=== PATIENT | female | born 2000 | race Caucasian/White ===

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

== ENCOUNTER 2018-03-15 19:02 | Emergency (ER) | payer SELFPAY ==
[~2018-03-15] VITALS: Ht 170.2 cm; Wt 94.2 kg
[~2018-03-15 19:02] MED LIST changes: +FERR325T18 PO; -FERR325T20 PO
[2018-03-15 19:16] VITALS: BP 128/86
== END 2018-03-15 20:37 ==
LOC: ED 20:10
DX: J06.9 Acute upper respiratory infection, unspecified (principal); B34.9 Viral infection, unspecified; J45.909 Unspecified asthma, uncomplicated
CPT/HCPCS: 71046; 99284

== ENCOUNTER 2018-09-21 13:45 | Emergency (ER) | payer SELFPAY ==
[~2018-09-21] VITALS: Ht 172.7 cm; Wt 91.7 kg
[~2018-09-21 13:45] MED LIST changes: +TRAZ-136 PO; -TRAZ50TA18 PO
[2018-09-21 13:47] VITALS: BP 126/80
[2018-09-21] MEDS ORDERED: DIAZEPAM 5 MG TABLET PO ONE (14:00)
[2018-09-21] MEDS ORDERED: KETOROLAC 30 MG/1 ML IM ONE (14:00)
[2018-09-21] MEDS ORDERED: DIAZEPAM 5 MG TABLET ONE (14:37)
[2018-09-21] MEDS ORDERED: KETOROLAC 30 MG/1 ML ONE (14:37)
[2018-09-21] MEDS ORDERED: ACETAMINOPHEN 500 MG TABLET PO ONE (15:10)
[2018-09-21] MEDS ORDERED: ACETAMINOPHEN 500 MG TABLET ONE (15:26)
[2018-09-21 16:40] LABS: MICROSCOPIC INDICATED
[2018-09-21 16:46] LABS: CULTURE INDICATED? NO
== END 2018-09-21 17:27 | disposition home or self-care (01) ==
LOC: ED 17:20
DX: M54.5 Low back pain (principal); F32.9 Major depressive disorder, single episode, unspecified; J45.909 Unspecified asthma, uncomplicated; Z72.9 Problem related to lifestyle, unspecified; Z87.891 Personal history of nicotine dependence
CPT/HCPCS: 36415; 76801; 81001; 84702; 99285